=== PATIENT | male | born 1950 | race Caucasian/White ===

== ENCOUNTER → 2016-12-12 | Outpatient (CLI) | payer OTHER ==
[~2016-12-12] MED LIST: ADVAIR 250-501 EACH INH; ALDACTONE25 MG PO; AMOXICILLIN 50500 MG PO; AUGMENTIN 500-1 EACH PO; COZAAR 50 MG TA50 M2 PO; DEMADEX20 MG PO; HYDROCODON-ACE1 EAC5 PO; K-DUR 20 MEQ T20 MEQ PO; LASIX 40 MG TAB40 MG PO; LEVOTHROID; LEVOTHYROXIN0.025 MG PO; LISINOPRIL20 MG PO; MUCINEX TA600 MG/TA2 PO; NORVASC5 MG PO; OMEPRAZOLE 20 M20 M1 PO; PERCOCET 5-3251 EACH PO; POTASSIUM; TOPROL XL25 MG PO; TRAMADOL 50 MG50 MG; TRAMADOL 50 MG50 MG PO; [UNRECOGNIZED DRUG - OTHER]
== END ==
LOC: RAD 13:25
DX: M17.12 Unilateral primary osteoarthritis, left knee (principal)

== ENCOUNTER 2018-03-26 13:27 | Inpatient (IN) | payer OTHER ==
[~2018-03-26] VITALS: Ht 193 cm; Wt 181.0 kg
--- NOTE | ~2018-03-26 | HC ---
[facility] [place] [address] CONSULTATION Name: FELISA ZHAO Room #: 225-P ADM IN M.R.#: [id number] Admission: 03/26/18 Attend Phys: Davida Reddy MD Discharge: Date of : 54 Report #: [id number] THIS REPORT FOR: //name// CC: Silvestre Reddy DATE OF SERVICE: 03/27/2018 CHIEF COMPLAINT: Bilateral lower extremity ulcerations. HISTORY OF PRESENT ILLNESS: This is a 68-year-old male patient who was admitted through the emergency department. He has had pain, swelling and drainage, as well as ulceration to both lower legs for the last couple of months, he has had recurring ulcers like this over the years. He denies significant pain, but notices some discomfort. He spends a lot of time sitting up with his legs in a dependent position. He currently has a nonproductive cough, but denies any shortness of breath. PAST MEDICAL HISTORY: Positive for history of congestive heart failure, obstructive sleep apnea, pulmonary hypertension, morbid obesity, lymphedema, hypertension, osteoarthritis. FAMILY HISTORY: Noncontributory. SOCIAL HISTORY: The patient has a 30 pack-year history of smoking. Denies alcohol use. ALLERGIES: None. MEDICATIONS: Include tramadol, trazodone, Aldactone, Levoxyl, losartan, Advair, metoprolol, torsemide, Prilosec. FAMILY HISTORY: Noncontributory. REVIEW OF SYSTEMS: CONSTITUTIONAL: The patient denies fever, chills or weight loss. NEUROLOGICAL: The patient denies focal weakness, numbness, tingling. EYES: The patient denies visual changes, redness or drainage. ENT: The patient denies earache, nasal drainage, sore throat. CARDIOVASCULAR: The patient denies chest pain, palpitation or diaphoresis. PULMONARY: The patient does complain of mild shortness of breath and cough. Denies hemoptysis. GASTROINTESTINAL: The patient denies nausea, vomiting, diarrhea or abdominal pain. ORTHOPEDIC: The patient complains of pain, swelling, drainage and redness to both lower extremities. [facility] [address] [place] [address] CONSULTATION Name: FELISA ZHAO [facility] Room #: 225-P [facility] IN M.R.#: [id number] Admission: 03/26/18 Attend Phys: Davida Reddy MD Discharge: Date of : 54 Report #: [id number] Other systems in a 14-point review of systems are negative. PHYSICAL EXAMINATION: VITAL SIGNS: At this time include temperature is 36.4, pulse 82, respiratory rate of 20, blood pressure 151/62. GENERAL: This is a chronically ill-appearing male patient who appears to be in mild discomfort. HEENT: Head normocephalic. Nose and throat are clear. NECK: Supple. LUNGS: Diminished. HEART: Regular rhythm. ABDOMEN: Soft, obese, nontender. EXTREMITIES: Examination of the lower extremities demonstrates diminished distal pulses. He has 2+ edema. He has multiple ulcerations on the lower legs bilaterally, skin changes including hyperpigmentation, some lipodermatosclerosis consistent with longstanding venous stasis dermatitis and venous insufficiency. He has scaling as well and dry skin of both legs. NEUROLOGIC: He is alert, oriented, and appropriate. LABORATORY DATA: Includes white blood cell count 10.4, hemoglobin 11.6. Sodium 142, potassium 3.1, CO2 39, BUN 26, creatinine 1.8. CLINICAL IMPRESSION: 1. Multiple ulcerations, both lower extremities, likely due to venous stasis dermatitis, venous insufficiency, and lymphedema. 2. Congestive heart failure. 3. Cellulitis of the right lower extremity. RECOMMENDATIONS: At this point in time, we will use topical AmLactin lotion to the dry skin on both legs, Xeroform gauze to the open ulcerations followed by Kerlix and Pino wrap. Recommend elevation as much as he will allow, may engage PT, OT for lymphedema therapy at the beginning of the week, antibiotic therapy pending cultures, aggressive nutritional support. We will check arterial Dopplers. His distal pulses are difficult to palpate. I appreciate being asked to see him in consultation. <ELECTRONICALLY SIGNED> By: Larry Martin MD 03/30/181909 [id number] Larry Martin MD /nt
--- NOTE | ~2018-03-26 | H ---
[facility] [place] [address] HISTORY AND PHYSICAL Name: FELISA ZHAO Room #: 429-P ADM IN M.R.#: [id number] Admission: 03/26/18 Attend Phys: Davida Reddy MD Discharge: Date of : 54 Report #: [id number] THIS REPORT FOR: //name// CC: Silvestre Reddy DATE OF SERVICE: 03/26/2018 CHIEF COMPLAINT: Wound to the right lower leg. HISTORY OF PRESENT ILLNESS: The patient is a 68-year-old gentleman with multiple medical problems, came to the Emergency Room for evaluation of wound on his right lower extremity. He said it has been there for about 2 months and recently started to bleed and drain some serous type fluid. There are two open areas on the right lower leg. He has had a nonproductive cough recently, but denies any worsening shortness of breath. PAST MEDICAL HISTORY: Chronic diastolic congestive heart failure, obstructive sleep apnea, pulmonary hypertension contributing to heart failure, morbid obesity, lymphedema, hypertension, osteoarthritis. PAST SURGICAL HISTORY: He has had some joint surgery. FAMILY HISTORY: Noncontributory. SOCIAL HISTORY: Lives with his brother. He has got a [id number] history of smoking. Denies chronic alcohol use. ALLERGIES: None. MEDICATIONS: Levoxyl, tramadol, trazodone, Aldactone, losartan, Advair, Prilosec, torsemide, metoprolol. REVIEW OF SYSTEMS: Denies headache, chest pain, shortness of breath, abdominal pain, nausea, vomiting, diarrhea, constipation, dysuria or syncope. OBJECTIVE: VITAL SIGNS: Temperature 36.9, pulse 74, respirations 20, blood pressure 137/84 and O2 sat 91-97% on 2 liters nasal cannula. GENERAL: He is awake and alert, in no distress. HEAD AND NECK: Unremarkable. LUNGS: Clear with moist cough. HEART: Regular. ABDOMEN: Obese, soft, normoactive bowel sounds. EXTREMITIES: No cyanosis or clubbing. He has venous stasis dermatitis of both lower legs. There are half-dollar size two open areas in the right-mid, lower [address] [address] HISTORY AND PHYSICAL Name: FELISA ZHAO [facility] Room #: 429-P [facility] IN .R.#: [id number] Admission: 03/26/18 Attend Phys: Davida Reddy MD Discharge: Date of : 54 Report #: [id number] outer leg weeping some bloody serous fluid. There is faint erythema. He has tense leathery type skin. NEUROLOGIC: Cranial nerves intact. He is oriented to place, knew my name. Strength is intact. LABORATORY DATA: Reviewed. ASSESSMENT: 1. Cellulitis, right lower extremity. 2. Venous stasis wound to the right lower leg. 3. Chronic diastolic heart failure. 4. Morbid obesity. 5. Hypokalemia. PLAN: IV antibiotics have been ordered and I have asked Dr. Freitas to see him in consultation. Lovenox DVT prophylaxis and continue home medicines with replacement of potassium. <ELECTRONICALLY SIGNED> By: Holden Alicia MD 03/27/18 1349 [id number] Holden Alicia MD /nt
--- NOTE | ~2018-03-26 | D ---
[facility] [place] [place] [address] DISCHARGE SUMMARY Name: FELISA ZHAO Room #: 225-P [facility] IN M.R.#: [id number] Admission: 03/26/18 Attend Phys: Davida Reddy MD Discharge: 03/31/18 Date of : 54 Report #: [id number] THIS REPORT FOR: //name// CC: Silvestre Reddy FINAL DIAGNOSES: 1. Cellulitis of the right lower extremity. 2. Lymphedema. 3. Venous stasis wounds. 4. Chronic congestive heart failure. 5. Chronic obstructive pulmonary disease. 6. Morbid obesity. HOSPITAL COURSE: The patient was admitted with redness, pain, swelling of the lower legs and there were some open wounds in the right lower leg. He was treated for venous stasis wounds with mild complication of cellulitis and chronic lymphedema related to his chronic heart failure, morbid obesity and COPD. He was treated with IV antibiotics and assessed by the wound care team. He had no other interval complication. DISPOSITION: To be transferred to a [facility] facility for ongoing wound and lymphedema care to his lower legs. He will continue all current medications and finish a course of Keflex. <ELECTRONICALLY SIGNED> By: Holden Alicia MD 04/01/18 1252 [id number] Holden Alicia MD /nt
[~2018-03-26 13:27] MED LIST changes: +HYDROCODONE-AP1 EAC6 PO; +NORFLEX100 MG PO; -TRAMADOL 50 MG50 MG PO
[2018-03-26 13:45] VITALS: BP 128/86
[2018-03-26] MEDS ORDERED: SYNTHROID50 MCG PO (14:43)
[2018-03-26] MEDS ORDERED: TRAZODONE HCL100 MG PO (14:44)
[2018-03-26] MEDS ORDERED: TRAMADOL 50 MG50 MG PO (14:50)
[2018-03-26 15:10] LABS: ABSOLUTE NEUTROPHILS 8.3 thou/uL (1.4-8.2); EOSINOPHILS 1.3 % (0.0-3.0); HEMATOCRIT 37.4 % (42.0-52.0); HEMOGLOBIN 11.6 gm/dL (14.0-18.0); LYMPHOCYTES 11.6 % (24.0-44.0); MCH 25.7 pg (26.0-34.0); MCV 82.8 fL (80.0-100.0); MONOCYTES 6.4 % (1.0-8.0); PLATELET COUNT 261 thou/uL (150-400); POLYS 79.7 % (36.0-66.0); RBC 4.52 mil/uL (4.50-6.00); RDW 18.1 % (10.5-14.5); WBC 10.4 thou/uL (4.0-11.0)
[2018-03-26 15:43] LABS: CALCIUM 9.4 mg/dL (8.5-10.1); CREATININE 1.8 mg/dL (0.7-1.3); POTASSIUM 3.1 mmol/L (3.5-5.1)
[2018-03-26 16:52] VITALS: BP 130/90
[2018-03-26 17:43] VITALS: BP 107/80
[2018-03-26] MEDS ORDERED: IBUPROFEN 200200 M1 PO (19:10)
[2018-03-26 21:00] VITALS: BP 148/72
[2018-03-27 05:30] VITALS: BP 128/68
[2018-03-27 08:16] VITALS: BP 137/84
[2018-03-27 20:05] VITALS: BP 151/62
[2018-03-28 04:30] VITALS: BP 132/92
[2018-03-28 05:55] LABS: HEMATOCRIT 32.2 % (42.0-52.0); HEMOGLOBIN 10.2 gm/dL (14.0-18.0); MCH 25.7 pg (26.0-34.0); MCHC 31.6 g/dL (28.0-37.0); MCV 81.3 fL (80.0-100.0); RBC 3.96 mil/uL (4.50-6.00); RDW 17.4 % (10.5-14.5); WBC 9.2 thou/uL (4.0-11.0)
[2018-03-28 06:04] LABS: CALCIUM 9.8 mg/dL (8.5-10.1); CREATININE 1.6 mg/dL (0.7-1.3)
[2018-03-28 07:32] VITALS: BP 133/74
[2018-03-28 20:50] VITALS: BP 126/79
[2018-03-29 04:15] VITALS: BP 126/83
[2018-03-29 07:30] VITALS: BP 149/78
[2018-03-29 14:48] VITALS: BP 143/60
[2018-03-29 22:31] VITALS: BP 149/75
[2018-03-30 08:41] VITALS: BP 137/76
[2018-03-30] MEDS ORDERED: NORCO 10-325 T1 EACH PO (13:19)
[2018-03-30] MEDS ORDERED: IPRAT-ALBUT 0.5-3 ML INH (13:19)
[2018-03-30] MEDS ORDERED: TRIAMCINOLONE A15 G3 TOP (13:20)
[2018-03-30] MEDS ORDERED: AMMONIUM LACTA226 GM TOP (13:20)
[2018-03-31 01:19] VITALS: BP 154/79
[2018-03-31 07:56] VITALS: BP 150/75
[2018-03-31 08:04] VITALS: BP 150/75
[2018-03-31 08:17] LABS: CALCIUM 9.1 mg/dL (8.5-10.1); CREATININE 1.6 mg/dL (0.7-1.3); POTASSIUM 4.9 mmol/L (3.5-5.1)
== END 2018-03-31 18:56 | DRG 603 ==
LOC: ER 13:27 → EROBS 16:34 → SICU 16:34 → 4E 16:34 → SICU 03-29 13:24
PROVIDERS: Emergency Medicine; Internal Medicine Geriatric Medicine
DX: L03.115 Cellulitis of right lower limb (principal); L97.829 Non-pressure chronic ulcer of other part of left lower leg with unspecified severity; Z68.42 Body mass index [BMI] 45.0-49.9, adult; I50.32 Chronic diastolic (congestive) heart failure; J96.10 Chronic respiratory failure, unspecified whether with hypoxia or hypercapnia; L97.819 Non-pressure chronic ulcer of other part of right lower leg with unspecified severity; I70.201 Unspecified atherosclerosis of native arteries of extremities, right leg; I87.2 Venous insufficiency (chronic) (peripheral); G47.33 Obstructive sleep apnea (adult) (pediatric); I27.20 Pulmonary hypertension, unspecified; E66.01 Morbid (severe) obesity due to excess calories; I89.0 Lymphedema, not elsewhere classified; I87.8 Other specified disorders of veins; J44.9 Chronic obstructive pulmonary disease, unspecified; E87.6 Hypokalemia; I11.0 Hypertensive heart disease with heart failure; M19.90 Unspecified osteoarthritis, unspecified site; Z87.891 Personal history of nicotine dependence; Z79.899 Other long term (current) drug therapy; Z23 Encounter for immunization
CPT/HCPCS: 10084; 15000